=== PATIENT | female | born 1965 | race African-American/Black ===

== ENCOUNTER → 2016-10-13 | Outpatient (CLI) | payer OTHER ==
--- NOTE | 2016-10-13 17:32 | WOMENS IMAGING REPORT ---
EXAM DESCRIPTION: 3D SCREENING MAMMO BILAT COMPLETED DATE/TIME: 10/13/2016 8:35 am REASON FOR STUDY: Z12.31 ROUTINE SCREENING MAMMO Z12.31 ENCNTR SCREEN MAMMOGRAM FOR MALIGNANT NEOPL ASM OF BRONYWN COMPARISON: Multiple since 2008 TECHNIQUE: Standard craniocaudal and mediolateral oblique views of each breast recorded using digita l acquisition and breast tomosynthesis. LIMITATIONS: None. FINDINGS: Findings present which are benign by mammographic criteria. No suspicious masses, calcifi cations or architectural distortion. Read with the assistance of CAD. .[facility] R2 Cenova Version 1.3 .[facility] - R2 Cenova Version 1.3 .[facility] - R2 Cenova Version 2.4 .[facility] - R2 Cenova Version 2.4 .[facility] - R2 Chairman Version 9.2 Benign mammographic findings may include one or more of the following: Smooth masses, popcorn/rim/co arse calcifications, asymmetries, post-procedure changes, and lesions with long-standing stability. BREAST DENSITY: c. The breasts are heterogeneously dense, which may obscure small masses. BIRAD: 2 BENIGN FINDING(S) RECOMMENDATION: RECOMMENDATION: ROUTINE SCREENING COMMENT: PATIENT NOTIFIED BY LETTER The [employer] recommends an annual screening mammogram for women aged 40 years or over. Each patient will receive a reminder prior to the anniversary date of her mammogram. The [employer] (ACR) has developed recommendations for screening MRI of the breast s in certain patient populations, to be used in conjunction with mammography. Breast MRI surveillanc e may be appropriate for women with more than 20% lifetime risk of developing breast cancer as deter mined by genetic testing, significant family history of the disease, or history of mantle radiation f or Hodgkins Disease. ACR Practice Guidelines 2008. DBT Technology DBT is a type of tomographic mammography. With conventional mammography, overlapping breast tissue ma y make lesions difficult to detect, even with good compression. DBT uses an x-ray tube that rotates a round the breast, taking images at different angles. These images are then combined to create thin sl ices of the breast that the radiologist can view as a 3D reconstruction. The [employer] unit can perform full-field digital mammograms (2D imaging); or DBT (3D imaging); or both, in a combination mode that quickly performs both the mammogram and the tomosynthesis scan while the breast is still compressed. PQRS 6045F: Fluoroscopic imaging is not utilized for breast tomosynthesis. TECHNICAL DOCUMENTATION: FINDING NUMBER: (1) ASSESSMENT: (1) JOB ID: [id number] [employer]- All Rights Reserved
== END ==
LOC: WI 07:20
PROVIDERS: ATTEND Family Medicine
DX: Z12.31 Encounter for screening mammogram for malignant neoplasm of breast (principal)
CPT/HCPCS: 77063; G0202; 77067

== ENCOUNTER → 2016-12-31 | Outpatient (CLI) | payer OTHER | LOC: WI 13:39 | PROVIDERS: ATTEND Family Medicine | DX: N63 Unspecified lump in breast (principal) | CPT/HCPCS: 76642 ==

== ENCOUNTER → 2017-10-14 | Outpatient (CLI) | payer OTHER ==
--- NOTE | 2017-10-14 13:13 | WOMENS IMAGING REPORT ---
EXAM DESCRIPTION: 3D SCREENING MAMMO BILAT COMPLETED DATE/TIME: 10/14/2017 7:26 am REASON FOR STUDY: SCREENING MAMMO Z12.31 ENCNTR SCREEN MAMMOGRAM FOR MALIGNANT NEOPLASM OF BRONWYN COMPARISON: 10/13/2016 and 10/02/2015. TECHNIQUE: Standard craniocaudal and mediolateral oblique views of each breast recorded using digita l acquisition and breast tomosynthesis. LIMITATIONS: None. FINDINGS: Findings present which are benign by mammographic criteria. No suspicious masses, calcifi cations or architectural distortion. Pertinent benign findings: Stable retroareolar cyst in the right breast. Read with the assistance of CAD. .[facility] - R2 Cenova Version 1.3 .[facility] - R2 Cenova Version 1.3 .[facility] - R2 Cenova Version 2.4 .[facility] - R2 Cenova Version 2.4 .[facility] - R2 Skein Inspector Version 9.2 Benign mammographic findings may include one or more of the following: Smooth masses, popcorn/rim/co arse calcifications, asymmetries, post-procedure changes, and lesions with long-standing stability. IMPRESSION: BENIGN MAMMOGRAPHIC FINDINGS. BIRADS 2 BREAST DENSITY: c. The breasts are heterogeneously dense, which may obscure small masses. BIRAD: 2 BENIGN FINDING(S) RECOMMENDATION: RECOMMENDATION: ROUTINE SCREENING COMMENT: The patient has been notified of the results by letter per SA requirements. Additional no tification policies are in place for contacting patient with suspicious or incomplete findings. Quality ID #[id number]: The [employer] recommends an annual screening mammogram for women aged 40 years or over. This facility utilizes a reminder system to ensure that all patients receive reminder letters, and/or direct phone calls for appointments. This includes reminders for routine scr eening mammograms, diagnostic mammograms, or other Breast Imaging Interventions when appropriate. Th is patient will be placed in the appropriate reminder system. The [employer] (ACR) has developed recommendations for screening MRI of the breast s in certain patient populations, to be used in conjunction with mammography. Breast MRI surveillanc e may be appropriate for women with more than 20% lifetime risk of developing breast cancer as deter mined by genetic testing, significant family history of the disease, or history of mantle radiation f or Hodgkins Disease. ACR Practice Guidelines 2008. DBT Technology DBT is a type of tomographic mammography. With conventional mammography, overlapping breast tissue ma y make lesions difficult to detect, even with good compression. DBT uses an x-ray tube that rotates a round the breast, taking images at different angles. These images are then combined to create thin sl ices of the breast that the radiologist can view as a 3D reconstruction. The [employer] unit can perform full-field digital mammograms (2D imaging); or DBT (3D imaging); or both, in a combination mode that quickly performs both the mammogram and the tomosynthesis scan while the breast is still compressed. PQRS 6045F: Fluoroscopic imaging is not utilized for breast tomosynthesis. TECHNICAL DOCUMENTATION: FINDING NUMBER: (1) ASSESSMENT: (1) JOB ID: [id number] [employer]- All Rights Reserved
== END ==
LOC: WI 07:07
PROVIDERS: ATTEND Family Medicine
DX: Z12.31 Encounter for screening mammogram for malignant neoplasm of breast (principal)
CPT/HCPCS: 77063; 77067

== ENCOUNTER → 2018-10-19 | Outpatient (CLI) | payer OTHER ==
--- NOTE | 2018-10-19 13:35 | WOMENS IMAGING REPORT ---
EXAM DESCRIPTION: 3D SCREENING MAMMO BILAT COMPLETED DATE/TIME: 10/19/2018 7:19 am REASON FOR STUDY: ROUTINE 3D BILATERAL SCREENING,Z12.31 Z12.31 ENCNTR SCREEN MAMMOGRAM FOR MALIGNAN T NEOPLASM OF BRONWYN COMPARISON: Multiple since 2012 TECHNIQUE: Standard craniocaudal and mediolateral oblique views of each breast recorded using digita l acquisition and breast tomosynthesis. LIMITATIONS: None. FINDINGS: Findings present which are benign by mammographic criteria. No suspicious masses, calcifi cations or architectural distortion. Pertinent benign findings: Multiple right breast cysts. Stable benign bilateral breast parenchymal c alcifications. Read with the assistance of CAD. .[facility] - R2 Cenova Version 1.3 .[facility] Imaging - R2 Cenova Version 2.1 .[facility] - R2 Cenova Version 2.4 .[facility] - R2 Cenova Version 2.4 .[facility] - R2 Optical Instrument Assembly Supervisor Version 9.2 Benign mammographic findings may include one or more of the following: Smooth masses, popcorn/rim/co arse calcifications, asymmetries, post-procedure changes, and lesions with long-standing stability. IMPRESSION: BENIGN MAMMOGRAPHIC FINDINGS. BIRADS 2 BREAST DENSITY: c. The breasts are heterogeneously dense, which may obscure small masses. BIRAD: 2 BENIGN FINDING(S) RECOMMENDATION: RECOMMENDATION: ROUTINE SCREENING COMMENT: The patient has been notified of the results by letter per SA requirements. Additional no tification policies are in place for contacting patient with suspicious or incomplete findings. Quality ID #225: The [employer] recommends an annual screening mammogram for women aged 40 years or over. This facility utilizes a reminder system to ensure that all patients receive reminder letters, and/or direct phone calls for appointments. This includes reminders for routine scr eening mammograms, diagnostic mammograms, or other Breast Imaging Interventions when appropriate. Th is patient will be placed in the appropriate reminder system. The [employer] (ACR) has developed recommendations for screening MRI of the breast s in certain patient populations, to be used in conjunction with mammography. Breast MRI surveillanc e may be appropriate for women with more than 20% lifetime risk of developing breast cancer as deter mined by genetic testing, significant family history of the disease, or history of mantle radiation f or Hodgkins Disease. ACR Practice Guidelines 2008. DBT Technology DBT is a type of tomographic mammography. With conventional mammography, overlapping breast tissue ma y make lesions difficult to detect, even with good compression. DBT uses an x-ray tube that rotates a round the breast, taking images at different angles. These images are then combined to create thin sl ices of the breast that the radiologist can view as a 3D reconstruction. The [employer] unit can perform full-field digital mammograms (2D imaging); or DBT (3D imaging); or both, in a combination mode that quickly performs both the mammogram and the tomosynthesis scan while the breast is still compressed. PQRS 6045F: Fluoroscopic imaging is not utilized for breast tomosynthesis. TECHNICAL DOCUMENTATION: FINDING NUMBER: (1) ASSESSMENT: (1) JOB ID: [id number] [employer]- All Rights Reserved Reading location - IP/workstation name: [email or web address]
== END ==
LOC: WI 07:05
PROVIDERS: ATTEND Family Medicine
DX: Z12.31 Encounter for screening mammogram for malignant neoplasm of breast (principal)
CPT/HCPCS: 77063; 77067

== ENCOUNTER → 2019-07-25 | Outpatient (CLI) | payer OTHER ==
--- NOTE | 2019-07-25 10:06 | WOMENS IMAGING REPORT ---
EXAM DESCRIPTION: BILAT DIAGNOSTIC MAMMO W/CAD COMPLETED DATE/TIME: 07/25/2019 9:34 am REASON FOR STUDY: N63.42 UNSPECIFIED LUMP IN LEFT BREAST, SUBAREOLAR N63.42 UNSPECIFIED LUMP IN LEF T BREAST, SUBAREOLAR COMPARISON: Digital tomosynthesis bilateral screening mammograms dated 10/19/2018, 10/14/2017 and digi ministerio bilateral screening mammograms dated 10/13/2016 and 10/02/2015. EXAM PARAMETERS: Standard craniocaudal and mediolateral oblique views of each breast recorded using digital acquisition. Read with the assistance of CAD: .[facility] - [employer] Instructor Kindergarten Version 9.2 LIMITATIONS: None. FINDINGS: RIGHT BREAST MASSES: Stable well-circumscribed fluctuating masses in the subareolar region of the breast. CALCIFICATIONS: No new or suspicious calcifications. ARCHITECTURAL DISTORTION: None. ASYMMETRY: None noted. OTHER: No other significant findings. LEFT BREAST MASSES: A marker was placed over the clinically palpable mass in the subareolar region of the breast . A 1.2 cm mass is noted. CALCIFICATIONS: No new or suspicious calcifications. ARCHITECTURAL DISTORTION: None. ASYMMETRY: None noted. OTHER: No other significant finding. BREAST ULTRASOUND: TECHNIQUE: Static and dynamic grayscale images acquired of the left breast in the specific areas of c linical/mammographic concern. Selected color Doppler images recorded. ELASTOGRAPHY PERFORMED: No. LIMITATIONS: None. FINDINGS: MASS: At the 12 o'clock central axis, 9 x 10 x 11 mm and 5 x 4 mm cysts. These findings correlate t o the clinically palpable mass and left breast mammogram. The larger cyst may represent a cluster of cysts. ELASTOGRAPHY CHARACTERISTICS: Not applicable. OTHER: No other significant finding. IMPRESSION: 1. Two cysts at the 12 o'clock axis Left breast as described above. These findings cor relate to the clinically palpable mass. BREAST DENSITY: c. The breasts are heterogeneously dense, which may obscure small masses. BIRAD: ASSESSMENT: 2 Benign findings. RECOMMENDATION: 1. Clinical correlation and the patient advised follow-up with her provider. 2. Routine mammogram. COMMENT: The patient has been notified of the results by letter per MQSA requirements. Additional no tification policies are in place for contacting patient with suspicious or incomplete findings. Quality ID #225: The [employer] recommends an annual screening mammogram for women aged 40 years or over. This facility utilizes a reminder system to ensure that all patients receive reminder letters, and/or direct phone calls for appointments. This includes reminders for routine scr eening mammograms, diagnostic mammograms, or other Breast Imaging Interventions when appropriate. Th is patient will be placed in the appropriate reminder system. TECHNICAL DOCUMENTATION: FINDING NUMBER: (1) ASSESSMENT: (1) JOB ID: [id number] [employer]- All Rights Reserved Reading location - IP/workstation name: [email or web address]
--- NOTE | 2019-07-25 10:08 | WOMENS IMAGING REPORT ---
EXAM DESCRIPTION: U/S BREAST UNILAT LIMITED COMPLETE DATE/TIME: 07/25/2019 9:48 am REASON FOR STUDY: LEFT BREAST LUMP N63.42 N63.42 UNSPECIFIED LUMP IN LEFT BREAST, SUBAREOLAR FINDINGS: Please see combined report for performance of procedure and radiologic supervision and int erpretation. IMPRESSION: Please see combined report for performance of procedure and radiologic supervision and i nterpretation. Reading location - IP/workstation name: [email or web address]
== END ==
LOC: WI 08:46
PROVIDERS: ATTEND Family Medicine
DX: N60.02 Solitary cyst of left breast (principal)
CPT/HCPCS: 76642; 77066

== ENCOUNTER → 2020-04-03 | Outpatient (CLI) | payer OTHER ==
--- NOTE | 2020-04-04 18:38 | WOMENS IMAGING REPORT ---
EXAM DESCRIPTION: RIGHT DIAGNOSTIC MAMMO W/CAD; U/S BREAST UNILAT LIMITED IMAGES COMPLETED DATE/TIME: 04/03/2020 9:02 am; 04/03/2020 9:41 am REASON FOR STUDY: N63.0 UNSPECIFIED LUMP IN UNSPECIFIED BREAST; RT BREAST N63.41 N63.41 UNSPECIFIED LUMP IN RIGHT BREAST, SUBAREOLAR N63.0 UNSPECIFIED LUMP IN UNSPECIFIED BREAST COMPARISON: Multiple since 2013 EXAM PARAMETERS: Cone compression craniocaudal and mediolateral oblique images of the breast recorde d with digital acquisition. Right breast 90 mediolateral view. Right breast ultrasound was also performed. Read with the assistance of CAD. .[facility] - [employer] Bottle Cleaner Version 9.2 LIMITATIONS: None. FINDINGS: BREAST LATERALITY: Right MASSES: 5 cm mass right retroareolar region, well-circumscribed. No calcifications. CALCIFICATIONS: No new or suspicious calcifications. ARCHITECTURAL DISTORTION: None. ASYMMETRY: None noted. OTHER: No other significant findings. Right breast ultrasound: Ultrasound of the right breast demonstrates a 5 x 3.3 cm hypoechoic mass with good acoustic through t ransmission. There are low level internal echoes throughout the mass. This most likely represents a large fibroadenoma. Breast cyst with septations/debris is also possible. Ultrasound-guided core bi opsy recommended for follow-up. Ultrasound of the right axilla is unremarkable. No adenopathy. IMPRESSION: Palpable abnormality right breast correlates with a 5 x 3.3 cm hypoechoic well-circumscr ibed structure, either a fibroadenoma or cyst with low level internal echoes. Ultrasound-guided core -biopsy/ cyst aspiration recommended for followup (BI-RADS 4) BREAST DENSITY: b. There are scattered areas of fibroglandular density. BIRAD: ASSESSMENT: 4 Suspicious. Biopsy should be performed in the absence of clinical contra-indic ation. RECOMMENDATION: RECOMMENDED FOLLOW UP: Right breast ultrasound-guided core biopsy/ cyst aspiration o f retroareolar mass SPECIFIC INTERVENTION/IMAGING/CONSULTATION RECOMMENDED:Right breast ultrasound-guided core biopsy/cys t aspiration of retroareolar mass COMMUNICATION:Patient notified by letter COMMENT: The patient has been notified of the results by letter per MQSA requirements. Additional no tification policies are in place for contacting patient with suspicious or incomplete findings. Quality ID #225: The [employer] recommends an annual screening mammogram for women aged 40 years or over. This facility utilizes a reminder system to ensure that all patients receive reminder letters, and/or direct phone calls for appointments. This includes reminders for routine scr eening mammograms, diagnostic mammograms, or other Breast Imaging Interventions when appropriate. Th is patient will be placed in the appropriate reminder system. TECHNICAL DOCUMENTATION: FINDING NUMBER: (1) ASSESSMENT: (1) JOB ID: [id number] 2010 [employer]- All Rights Reserved Reading location - IP/workstation name: [email or web address]
--- NOTE | 2020-04-04 18:38 | WOMENS IMAGING REPORT ---
EXAM DESCRIPTION: RIGHT DIAGNOSTIC MAMMO W/CAD; U/S BREAST UNILAT LIMITED IMAGES COMPLETED DATE/TIME: 04/03/2020 9:02 am; 04/03/2020 9:41 am REASON FOR STUDY: N63.0 UNSPECIFIED LUMP IN UNSPECIFIED BREAST; RT BREAST N63.41 N63.41 UNSPECIFIED LUMP IN RIGHT BREAST, SUBAREOLAR N63.0 UNSPECIFIED LUMP IN UNSPECIFIED BREAST COMPARISON: Multiple since 2013 EXAM PARAMETERS: Cone compression craniocaudal and mediolateral oblique images of the breast recorde d with digital acquisition. Right breast 90 mediolateral view. Right breast ultrasound was also performed. Read with the assistance of CAD. .[facility] - [employer] Glass Lathe Operator Version 9.2 LIMITATIONS: None. FINDINGS: BREAST LATERALITY: Right MASSES: 5 cm mass right retroareolar region, well-circumscribed. No calcifications. CALCIFICATIONS: No new or suspicious calcifications. ARCHITECTURAL DISTORTION: None. ASYMMETRY: None noted. OTHER: No other significant findings. Right breast ultrasound: Ultrasound of the right breast demonstrates a 5 x 3.3 cm hypoechoic mass with good acoustic through t ransmission. There are low level internal echoes throughout the mass. This most likely represents a large fibroadenoma. Breast cyst with septations/debris is also possible. Ultrasound-guided core bi opsy recommended for follow-up. Ultrasound of the right axilla is unremarkable. No adenopathy. IMPRESSION: Palpable abnormality right breast correlates with a 5 x 3.3 cm hypoechoic well-circumscr ibed structure, either a fibroadenoma or cyst with low level internal echoes. Ultrasound-guided core -biopsy/ cyst aspiration recommended for followup (BI-RADS 4) BREAST DENSITY: b. There are scattered areas of fibroglandular density. BIRAD: ASSESSMENT: 4 Suspicious. Biopsy should be performed in the absence of clinical contra-indic ation. RECOMMENDATION: RECOMMENDED FOLLOW UP: Right breast ultrasound-guided core biopsy/ cyst aspiration o f retroareolar mass SPECIFIC INTERVENTION/IMAGING/CONSULTATION RECOMMENDED:Right breast ultrasound-guided core biopsy/cys t aspiration of retroareolar mass COMMUNICATION:Patient notified by letter COMMENT: The patient has been notified of the results by letter per MQSA requirements. Additional no tification policies are in place for contacting patient with suspicious or incomplete findings. Quality ID #225: The [employer] recommends an annual screening mammogram for women aged 40 years or over. This facility utilizes a reminder system to ensure that all patients receive reminder letters, and/or direct phone calls for appointments. This includes reminders for routine scr eening mammograms, diagnostic mammograms, or other Breast Imaging Interventions when appropriate. Th is patient will be placed in the appropriate reminder system. TECHNICAL DOCUMENTATION: FINDING NUMBER: (1) ASSESSMENT: (1) JOB ID: [id number] 2010 [employer]- All Rights Reserved Reading location - IP/workstation name: [email or web address]
== END ==
LOC: WI 08:37
PROVIDERS: ATTEND Family Medicine
DX: N63.41 Unspecified lump in right breast, subareolar (principal); N63.0 Unspecified lump in unspecified breast
CPT/HCPCS: 76642; 77065

== ENCOUNTER → 2020-04-23 | Day surgery (SDC) | payer OTHER ==
[~2020-04-23] MED LIST: LIDOCAINE 2% INJ (20 MG/ML) 20 ML MDV ONE
--- NOTE | 2020-04-23 16:24 | WOMENS IMAGING REPORT ---
EXAM DESCRIPTION: PUNCTURE ASPIR OF BREAST CYST COMPLETE DATE/TIME: 04/23/2020 3:45 pm REASON FOR STUDY: N63.41 UNSPECIFIED LUMP IN RIGHT BREAST, SUBAREOLAR R92.0 MAMMOGRAPHIC MICROCALCI FICATION FOUND ON DX IMAGING OF FINDINGS: Please see combined report for performance of procedure and radiologic supervision and int erpretation. IMPRESSION: Please see combined report for performance of procedure and radiologic supervision and i nterpretation. Reading location - IP/workstation name: [email or web address]
== END ==
LOC: WI 09:59
PROVIDERS: ATTEND Family Medicine
DX: N63.41 Unspecified lump in right breast, subareolar (principal)
CPT/HCPCS: 19000; J3490

== ENCOUNTER → 2020-07-30 | Outpatient (CLI) | payer OTHER ==
--- OUTSIDE RECORDS SUMMARY | 2020-07-30 15:33 | XMS REPORT ---
:1965 Author Organization [facility] Address [address] [address] Care Team Providers Name Role Phone Anthony HARVEY Attending Clinician Unavailable Anthony HARVEY Admitting Clinician Unavailable Allergies, Adverse Reactions, Alerts This patient has no known allergies or adverse reactions. Medications Ordered Filled Start Stop Current Ordering Indication Dosage Frequency Signature Comments Components Medication Medication Date Date Medication? Clinician (SIG) Name Name Ibuprofen Yes Trevor Cruz 800 Every 8 (Motrin 7-08 Gregor Hours as Tab*) 800 00:00: Md needed for Mg Tab 00 Pain Oxycodone Yes Trevor Cruz 1 Every 4 To Hcl 7-08 Gregor 6 Hours as (Roxicodone 00:00: Md needed for *) 5 Mg 00 Pain Tablet Problems Condition Condition Condition Status Onset Resolution Last Treatin g Comments Name Details Category Date Date Treatment Clinician Date Status post Status post Problem Active total total 03-27 abdominal abdominal 11:25: hysterectom hysterectom 00 y y Uterine Fibroid Problem Active leiomyoma uterus 03-25 16:06: 00 Menorrhagia Menorrhagia Problem Active 03-25 16:06: 00 Procedures Procedure Date / Time Performed Performing Clinician Bharathi hicks Total abdominal hysterectomy 2017-03-25 00:00:00 JOSE JUAN HARVEY Cystoscopy 2017-03-25 00:00:00 TREVOR HARVEY Results Test Description Test Time Test Comments Text Results Atomic Results Result Comments White Blood Count 2017-03-26 07:06:00 Test Item Value Reference Range Comments Blood leukocytes automated count (number/volume) (test code = 6690-2) 14.1 3.6-11.1 Red Blood Pqnea5498-98-35 07:06:00 Test Item Value Reference Range Comments Blood erythrocytes automated count (number/volume) 3.63 3.69-4.88 (test code = 789-8) Xofsutupci9176-23-54 07:06:00 Test Item Value Reference Range Comments Blood hemoglobin measurement (mass/volume) (test code 10.3 11.4-14.4 = 718-7) Ugfupzgskw7942-07-97 07:06:00 Test Item Value Reference Range Comments Automated blood hematocrit (volume fraction) (test 31.8 33.3-41.4 code = 4544-3) Mean Corpuscular Jhxhen3811-08-09 07:06:00 Test Item Value Reference Range Comments Automated erythrocyte mean corpuscular volume (test 87.4 79.3-94.8 code = 787-2) Mean Corpuscular Mongtprefq8851-65-48 07:06:00 Test Item Value Reference Range Comments Automated erythrocyte mean corpuscular hemoglobin 28.2 26.8-33.2 (mass per erythrocyte) (test code = 785-6) Mean Corpuscular Hemoglobin Wjrgxiw0926-43-79 07:06:00 Test Item Value Reference Range Comments Automated erythrocyte mean corpuscular hemoglobin 32.3 33.5-35.5 concentration measurement (mass/volume) (test code = 786-4) Red Cell Distribution Udcbl7341-70-12 07:06:00 Test Item Value Reference Range Comments Automated erythrocyte distribution width ratio (test 13.5 12.0-15.1 code = 788-0) Platelet Fzxyy3712-42-46 07:06:00 Test Item Value Reference Range Comments Automated blood platelet count (count/volume) (test 253 165-353 code = 777-3) Mean Platelet Stxuot3350-57-47 07:06:00 Test Item Value Reference Range Comments Automated blood platelet mean volume measurement (test 8.0 7.5-10.6 code = 14756-8) Neutrophils (%) (Auto)2017-03-26 07:06:00 Test Item Value Reference Range Comments Automated blood neutrophil count as percentage of 81.3 43.2-71.5 total leukocytes (test code = 770-8) Lymphocytes (%) (Auto)2017-03-26 07:06:00 Test Item Value Reference Range Comments Automated blood lymphocyte count as percentage of 11.0 16.8-43.4 total leukocytes (test code = 736-9) Monocytes (%) (Auto)2017-03-26 07:06:00 Test Item Value Reference Range Comments Automated blood monocyte count as percentage of total 7.6 4.6-12.4 leukocytes (test code = 5905-5) Eosinophils (%) (Auto)2017-03-26 07:06:00 Test Item Value Reference Range Comments Automated blood eosinophil count as percentage of 0.0 0.7-7.8 total leukocytes (test code = 713-8) Basophils (%) (Auto)2017-03-26 07:06:00 Test Item Value Reference Range Comments Automated blood basophil count as percentage of total 0.1 0.2-1.2 leukocytes (test code = 706-2) Neutrophils # (Auto)2017-03-26 07:06:00 Test Item Value Reference Range Comments Blood neutrophils automated count (number/volume) 11.5 1.9-7.2 (test code = 751-8) Lymphocytes # (Auto)2017-03-26 07:06:00 Test Item Value Reference Range Comments Automated blood lymphocyte count (number/volume) (test 1.6 1.1-2.7 code = 731-0) Monocytes # (Auto)2017-03-26 07:06:00 Test Item Value Reference Range Comments Blood monocytes automated count (number/volume) (test 1.1 0.3-0.8 code = 742-7) Eosinophils # (Auto)2017-03-26 07:06:00 Test Item Value Reference Range Comments Automated blood eosinophil count (test code = 711-2) 0.0 0.0-0.5 Basophils # (Auto)2017-03-26 07:06:00 Test Item Value Reference Range Comments Automated blood basophil count (count/volume) (test 0.0 0.0-0.1 code = 704-7) Sodium Mrtuf5044-60-89 15:35:00 Test Item Value Reference Range Comments Serum sodium measurement (test code = 2951-2) 137 13 7-145 Potassium Cfbhi8235-44-89 15:35:00 Test Item Value Reference Range Comments Serum potassium measurement (test code = 2823-3) 4.0 3.5-5.1 Chloride Kngfj8946-23-69 15:35:00 Test Item Value Reference Range Comments Chloride ser/plas (test code = 2075-0) 94 98-107 Carbon Dioxide Kepfw9448-58-71 15:35:00 Test Item Value Reference Range Comments Carbon dioxide measurement (test code = 17030172) 31 22-30 Glucose Pswqn5231-71-13 15:35:00 Test Item Value Reference Range Comments Serum or plasma glucose measurement (mass/volume) 126 74-106 (test code = 2345-7) Blood Urea Ndolhrdg8012-69-55 15:35:00 Test Item Value Reference Range Comments Serum or plasma urea nitrogen measurement 10 7-17 (mass/volume) (test code = 3094-0) Xwhmshcihj4699-10-46 15:35:00 Test Item Value Reference Range Comments Serum or plasma creatinine measurement (moles/volume) 0.98 0.52-1.04 (test code = 39794-8) Anion Czd3420-10-47 15:35:00 Test Item Value Reference Range Comments Blood anion gap (test code = 23826-6) 16 7-16 Calcium Ulrkw3771-07-22 15:35:00 Test Item Value Reference Range Comments Serum or plasma calcium measurement (mass/volume) 9.8 8.4-10.2 (test code = 74598-2) Total Rqaurgyix3145-37-35 15:35:00 Test Item Value Reference Range Comments Total bilirubin measurement (moles/volume) (test code 0.4 0.2-1.3 = 39062-8) Total Kuazlbi6149-64-48 15:35:00 Test Item Value Reference Range Comments Total protein blood (test code = 2885-2) 7.1 6.3-8.2 Tkxrvdw5624-26-32 15:35:00 Test Item Value Reference Range Comments Serum or plasma albumin measurement (mass/volume) 3.8 3.5-5.0 (test code = 1751-7) Tocpqdtj9436-58-22 15:35:00 Test Item Value Reference Range Comments Serum globulin measurement (test code = 902237259) 3.3 1.2-3.2 Albumin/Globulin Aubhy0306-74-27 15:35:00 Test Item Value Reference Range Comments Serum or plasma albumin/globulin mass ratio (test code 1.2 1.1-2.5 = 1759-0) Aspartate Amino Transf (AST/SGOT)2017-03-11 15:35:00 Test Item Value Reference Range Comments Aspartate aminotransferase (AST) to alanine 20 14-3 6 aminotransferase (ALT) ratio (test code = 1916-6) Alkaline Plucggpycfh2185-73-03 15:35:00 Test Item Value Reference Range Comments Alkaline phosphatase isoenzymes measurement (test code 72 38-126 = 51123-0) Alanine Aminotransferase (ALT/SGPT)2017-03-11 15:35:00 Test Item Value Reference Range Comments Serum or plasma alanine aminotransferase measurement 43 9.0-52.0 (enzymatic activity/volume) (test code = 1742-6) Encounters Start End Encounter Admission Attending Care Care Encounter Date/Time Date/Time Type Type Clinicians Facility Department ID 2017-03-25 2017-03-27 [facility] [id number] 09:49:00 12:57:00 TREVOR Phillips Immunizations Ordered Immunization Filled Immunization Date Status Commen ts Refusal Reason Name Name Vaccination Unknown Completed Payers Payer Name Policy Type Policy Number Effective Date Expiration D ate Social History This patient has no known social history. Vital Signs Vital Name Observation Time Observation Value Comments WEIGHT 2017-03-25 13:15:00 76.3 kg HEIGHT 2017-03-25 13:15:00 165.934244 cm WEIGHT 2017-03-25 09:49:00 76.3 kg HEIGHT 2017-03-25 09:49:00 165.447173 cm
--- NOTE | 2020-07-30 16:08 | WOMENS IMAGING REPORT ---
EXAM DESCRIPTION: BILAT SCREENING MAMMO W/CAD IMAGES COMPLETED DATE/TIME: 07/30/2020 3:48 pm REASON FOR STUDY: Z12.31 ENCOUNTER FOR SCREENING MAMMOGRAM FOR MALIGNANT NEOPLASM OF IJXGURY75.31 E NCNTR SCREEN MAMMOGRAM FOR MALIGNANT NEOPLASM OF BRONWYN COMPARISON: Priors back to 2012. EXAM PARAMETERS: Standard craniocaudal and mediolateral oblique views of each breast recorded using digital acquisition. Read with the assistance of CAD. .COUNTS INCLUDE 234 BEDS AT THE [facility] Medical Safety Version 9.2 LIMITATIONS: None. FINDINGS: RIGHT BREAST MASSES: No suspicious masses. CALCIFICATIONS: No new or suspicious calcifications. ARCHITECTURAL DISTORTION: None. ASYMMETRY: None noted. OTHER: No other significant findings. LEFT BREAST MASSES: No suspicious masses. CALCIFICATIONS: No new or suspicious calcifications. ARCHITECTURAL DISTORTION: None. ASYMMETRY: Focal asymmetry upper outer quadrant about 9 cm deep to the nipple. OTHER: No other significant findings. IMPRESSION: Focal asymmetry left breast. 0 Incomplete: Needs Additional Imaging Evaluation and/or prior Mammograms for Comparison. BREAST DENSITY: b. There are scattered areas of fibroglandular density. BIRAD: ASSESSMENT: 0 Incomplete: Needs Additional Imaging Evaluation and/or prior Mammograms for C omparison. RECOMMENDATION: RECOMMENDED FOLLOW-UP: Cone compression views and potential ultrasound left breast. The patient will be contacted for additional imaging. COMMENT: The patient has been notified of the results by letter per SA requirements. Additional no tification policies are in place for contacting patient with suspicious or incomplete findings. Quality ID #225: The [employer] recommends an annual screening mammogram for women aged 40 years or over. This facility utilizes a reminder system to ensure that all patients receive reminder letters, and/or direct phone calls for appointments. This includes reminders for routine scr eening mammograms, diagnostic mammograms, or other Breast Imaging Interventions when appropriate. Th is patient will be placed in the appropriate reminder system. TECHNICAL DOCUMENTATION: FINDING NUMBER: (1) ASSESSMENT: (1) JOB ID: [id number] 2010 [employer]- All Rights Reserved Reading location - IP/workstation name: [email or web address]
== END ==
LOC: WI 15:30
PROVIDERS: ATTEND Family Medicine
DX: Z12.31 Encounter for screening mammogram for malignant neoplasm of breast (principal)
CPT/HCPCS: 77067

== ENCOUNTER → 2020-08-07 | Outpatient (CLI) | payer OTHER ==
--- NOTE | 2020-08-07 10:43 | WOMENS IMAGING REPORT ---
EXAM DESCRIPTION: LEFT DIAGNOSTIC MAMMO W/CAD; U/S BREAST UNILAT LIMITED IMAGES COMPLETED DATE/TIME: 08/07/2020 9:33 am; 08/07/2020 10:03 am REASON FOR STUDY: N63.21 UNSPECIFIED LUMP IN THE LEFT BREAST, UPPER OUTER QUADRANT; LEFT BREAST LUMP N63.21 UNSPECIFIED LUMP IN THE LEFT BREAST, UPPER OUTER QUAD COMPARISON: None. EXAM PARAMETERS: Full field mediolateral and spot compression in the CC and MLO projections were per formed. Subsequently, targeted sonographic evaluation was performed. LIMITATIONS: None. FINDINGS: BREAST LATERALITY: left MASSES: Findings on comparison mammography persists on spot compression. Targeted sonographic evalua tion reveals a 9 x 8 x 8 mm simple cyst at the 3 o'clock position, 5 is 7 cm from the nipple. Additi onally, a 1.9 x 1.4 x 1.8 cm and a 4 x 4 x 4 mm simple cysts are seen within the retroareolar parench yma. CALCIFICATIONS: No new or suspicious calcifications. ARCHITECTURAL DISTORTION: None. ASYMMETRY: None noted. OTHER: No other significant findings. IMPRESSION: Benign findings. Multiple simple cysts. BREAST DENSITY: b. There are scattered areas of fibroglandular density. BIRAD: ASSESSMENT: 2 Benign findings. RECOMMENDATION: RECOMMENDED FOLLOW UP: Birads 1 or 2: The patient should resume routine screening . SPECIFIC INTERVENTION/IMAGING/CONSULTATION RECOMMENDED:No additional intervention/ imaging/consultati on needed at this time. COMMUNICATION:The negative/benign results were communicated to the patient. COMMENT: The patient has been notified of the results by letter per SA requirements. Additional no tification policies are in place for contacting patient with suspicious or incomplete findings. Quality ID #225: The [employer] recommends an annual screening mammogram for women aged 40 years or over. This facility utilizes a reminder system to ensure that all patients receive reminder letters, and/or direct phone calls for appointments. This includes reminders for routine scr eening mammograms, diagnostic mammograms, or other Breast Imaging Interventions when appropriate. Th is patient will be placed in the appropriate reminder system. TECHNICAL DOCUMENTATION: FINDING NUMBER: (1) ASSESSMENT: (1) JOB ID: [id number] 2010 [employer]- All Rights Reserved Reading location - IP/workstation name: [email or web address]
== END ==
LOC: WI 09:11
PROVIDERS: ATTEND Family Medicine
DX: N60.02 Solitary cyst of left breast (principal)
CPT/HCPCS: 76642; 77065